=== PATIENT | male | born 1975 | race African-American/Black ===

== ENCOUNTER 2017-06-08 11:55 | Emergency (ER) | payer MEDICAID, OTHER ==
[2017-06-08 12:01] VITALS: BP 116/78
--- NOTE | 2017-06-08 12:40 | ER Document Report ---
ED General - General Chief Complaint: Rash Stated Complaint: POSSIBLE RASH Time Seen by Provider: 06/08/17 12:10 Mode of Arrival: Ambulatory - HPI Notes: 41-year-old male presents today with complaints of a rash on his torso, back, upper legs and upper shoulders for approximately 4 days. Patient reports that he started using Tide detergent, noticed itching after that. Denies any sore throat. has not tried any [id number] medications. Patient states he recently felt like he had the flu 2 weeks ago but his symptoms completely resolved a week and half ago. Itching is 4 out of 10. Patient does not have a rash on his face, neck, lower legs, feet, hands and forearms. Denies fevers, chills, chest pain, shortness of breath, nausea, vomiting, diarrhea, abdominal pain, hematuria,blurred vision, double vision, loss of vision, speech changes, LH, dizziness, syncope, headaches, neck pain, weakness, bowel or bladder dysfunction, saddle anesthesia, numbness/tingling/muscle paralysis/weakness. - Related Data Allergies/Adverse Reactions: No Known Allergies Allergy (Unverified 06/08/17 11:57) Past Medical History - General Information source: Patient - Social History Smoking Status: Never Smoker Chew tobacco use (# tins/day): No Frequency of alcohol use: None Drug Abuse: None Family History: Reviewed & Not Pertinent Patient has suicidal ideation: No Patient has homicidal ideation: No Renal/ Medical History: Denies: Hx Peritoneal Dialysis Review of Systems - Review of Systems Constitutional: No symptoms reported EENT: No symptoms reported Cardiovascular: No symptoms reported Respiratory: No symptoms reported Gastrointestinal: No symptoms reported Genitourinary: No symptoms reported Male Genitourinary: No symptoms reported Musculoskeletal: No symptoms reported Skin: See HPI Hematologic/Lymphatic: No symptoms reported Neurological/Psychological: No symptoms reported Physical Exam - Vital signs Vitals: Temp Pulse Resp BP Pulse Ox 98.5 F 78 14 116/78 98 06/08/17 11:59 06/08/17 11:59 06/08/17 11:59 06/08/17 11:59 06/08/17 11:59 Interpretation: Normal - Notes Notes: PHYSICAL EXAMINATION: GENERAL: Well-appearing, well-nourished and in no acute distress. HEAD: Atraumatic, normocephalic. EYES: Pupils equal round and reactive to light, extraocular movements intact, sclera anicteric, conjunctiva are normal. ENT: Nares patent, oropharynx clear without exudates. Moist mucous membranes. NECK: Normal range of motion, supple without lymphadenopathy LUNGS: Breath sounds clear to auscultation bilaterally and equal. No wheezes rales or rhonchi. HEART: Regular rate and rhythm without murmurs ABDOMEN: Soft, nontender, nondistended abdomen. No guarding, no rebound. No masses appreciated. Musculoskeletal: Normal range of motion, no pitting or edema. No cyanosis. NEUROLOGICAL: Cranial nerves grossly intact. Normal speech, normal gait. Normal sensory, motor exams PSYCH: Normal mood, normal affect. SKIN: Warm, Dry, normal turgor, no rashes or lesions noted. Macular papular rash on torso, trunk, shoulders, upper thighs, no induration, warmth to touch, open wounds, drainage, satellite lesions, linear pattern or vesicles noted. Course - Re-evaluation Re-evalutation: 06/08/17 12:58 Rechecked the patient who is resting comfortably. On re-exam, patient is symptomatically improved. Discussed the diagnosis at great length. It appears to be matching clothing where his rashes. Advised him to change his detergent back to the discharge when he was using prior patient states he has not been wearing long parents for the last week. His rash developing. Apply steroid cream only to the area that is affected, do not apply more than twice a day, only apply a thin amount. Take prednisone as directed. Take [id number] Benadryl as needed for itching. Discussed the need to return to the ER for any new or worsening sx. Patient understands to take the Rx as directed. All questions answered. Patient comfortable with the decision to go home. - Vital Signs Vital signs: Temp Pulse Resp BP Pulse Ox 98.5 F 78 14 116/78 98 06/08/17 11:59 06/08/17 11:59 06/08/17 11:59 06/08/17 11:59 06/08/17 11:59 Discharge - Discharge Clinical Impression: Contact dermatitis Qualifiers: Contact dermatitis type: irritant Contact dermatitis trigger: detergents Qualified Code(s): L24.0 - Irritant contact dermatitis due to detergents Condition: Good Instructions: Contact Dermatitis ([facility]) Additional Instructions: Return immediately for any new or worsening symptoms. Follow up with primary care provider, call tomorrow to make followup appointment. Prescriptions: Prednisone 20 mg PO BID #10 tablet Triamcinolone Acetonide 15 gm TP BID #1 cream..g. Referrals: TAMMY ARAUZ MD [ACTIVE STAFF] - Follow up as needed
== END 2017-06-08 13:08 | disposition home or self-care (01) ==
LOC: ER 11:55
DX: L24.0 Irritant contact dermatitis due to detergents (principal)
CPT/HCPCS: 99282